=== PATIENT | male | born 1960 | race Caucasian/White ===

== ENCOUNTER 2016-08-23 07:46 | Emergency (ER) | payer MEDICAID ==
[2016-08-23 08:01] VITALS: BP 183/105
[2016-08-23] MEDS ORDERED: Bacitracin Oint 1 GM U/D Packet TOP ONE (08:22)
[2016-08-23] MEDS ORDERED: Doxycycline 100 MG Cap PO ONE (08:22)
[2016-08-23] MEDS ORDERED: Bacitracin Oint 28.35 GM Tube ONE (08:24)
--- NOTE | 2016-08-23 08:27 | EDM.PDOC ---
ED HPI GENERAL MEDICAL PROBLEM - General Chief Complaint: Bite:Animal, Insect Stated Complaint: TICK Time Seen by Provider: 08/23/16 08:14 Source of Information: Reports: Patient History Limitations: Reports: No Limitations - History of Present Illness INITIAL COMMENTS - FREE TEXT/NARRATIVE: Patient had a tick attached to his right posterior thigh. It was partially removed. 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 (see below) (Partial removal) Right Upper Leg Pain Score (Numeric/FACES): 2 - Related Data Allergies Allergy/AdvReac Type Severity Reaction Status Date / Time No Known Allergies Allergy Verified 07/03/15 13:16 Home Meds: Home Meds Lisinopril/Hydrochlorothiazide [Lisinopril-Hctz 10-12.5 mg Tab] 1 each PO DAILY 05/15/13 [History] Ferrous Sulfate 325 mg PO DAILY 06/14/15 [History] Docusate Sodium [Colace] 100 mg PO BID PRN 07/02/15 [History] Acetaminophen/HYDROcodone [[place] 325-5 MG] 1 - 2 tab PO Q4H PRN #30 tablet 07/08 [Rx] Past Medical History Cardiovascular History: Reports: Hypertension Gastrointestinal History: Reports: Colon Polyp, Other (See Below) Other Gastrointestinal History: tumor Musculoskeletal History: Reports: Arthritis, Back Pain, Chronic, Other (See Below) Other Musculoskeletal History: 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 Lymes disease - Infectious Disease History Infectious Disease History: Reports: MRSA - Past Surgical History Cardiovascular Surgical History: Reports: None GI Surgical History: Reports: Colon, Colonoscopy Social & Family History - Family History Cardiac: Reports: Hypertension - Tobacco Use Smoking Status *Q: Current Every Day Smoker Years of Tobacco use: 40 Packs/Tins Daily: 1 Used Tobacco, but Quit: No Second Hand Smoke Exposure: Yes - Caffeine Use Caffeine Use: Reports: Coffee - Alcohol Use Days Per Week of Alcohol Use: 4 Number of Drinks Per Day: 4 Total Drinks Per Week: 16 - Recreational Drug Use Recreational Drug Use: Yes Drug Use in Last 12 Months: No Recreational Drug Type: Reports: Marijuana/Hashish Recreational Drug Use Frequency: Not Used In Over 2 Months ED ROS GENERAL - Review of Systems Review Of Systems: See Below Constitutional: Reports: No Symptoms HEENT: Reports: No Symptoms Respiratory: Reports: No Symptoms Cardiovascular: Reports: No Symptoms Endocrine: Reports: No Symptoms GI/Abdominal: Reports: No Symptoms : Reports: No Symptoms Musculoskeletal: Reports: No Symptoms Skin: Reports: Wound Neurological: Reports: No Symptoms ED EXAM, ANIMAL BITE - Physical Exam Exam: See Below Exam Limited By: No Limitations General Appearance: Alert, WD/WN, No Apparent Distress, Anxious Eye Exam: Bilateral Eye: Normal Inspection Ears: Normal External Exam Nose: Normal Inspection. No: Nasal Swelling Throat/Mouth: Normal Inspection Head: Atraumatic, Normocephalic Neck: Normal Inspection Respiratory/Chest: No Respiratory Distress Cardiovascular: Normal Peripheral Pulses Extremities: Normal Inspection (Tick bite right posterior thigh) Neurological: Alert, Oriented Psychiatric: Normal Affect, Normal Mood Skin Exam: Normal Color Course - Vital Signs Last Recorded V/S: Last Vital Signs Temp 98.4 F 08/23/16 08:10 Pulse 82 08/23/16 08:10 Resp 16 08/23/16 08:10 BP 183/105 H 08/23/16 08:10 Pulse Ox 98 08/23/16 08:10 - Orders/Labs/Meds Orders: Active Orders 24 hr Category Date Time Status Bacitracin [Bacitracin Oint 1 GM] Med 08/23/16 08:22 Once 1 dose TOP ONETIME ONE Doxycycline [Vibramycin] Med 08/23/16 08:22 Once 200 mg PO ONETIME ONE Departure - Departure Time of Disposition: 08:25 Disposition: Home, Self-Care 01 Condition: good Clinical Impression: Tick bite Qualifiers: Encounter type: initial encounter Qualified Code(s): W57.XXXA - Bitten or stung by nonvenomous insect and other nonvenomous arthropods, initial encounter - Discharge Information Instructions: Insect Bite, [id number] Forms: ED Department Discharge Additional Instructions: Patient was told to have a tick attached to the posterior aspect of the right thigh. It was partially removed by the patient. The remainder of the tick attachment was removed with a splinter forceps. The wound was treated with bacitracin and a Band-Aid. The patient is given doxycycline 200 mg orally. Patient discharged home. No additional treatment should be indicated or needed. Reevaluation if new problems develop. - Problem List Review Problem List Initiated/Reviewed/Updated: Yes - My Orders Last 24 Hours: My Active Orders 08/23/16 08:22 Bacitracin [Bacitracin Oint 1 GM] 1 dose TOP ONETIME ONE Doxycycline [Vibramycin] 200 mg PO ONETIME ONE - Assessment/Plan Last 24 Hours: My Active Orders 08/23/16 08:22 Bacitracin [Bacitracin Oint 1 GM] 1 dose TOP ONETIME ONE Doxycycline [Vibramycin] 200 mg PO ONETIME ONE
== END 2016-08-23 08:33 | disposition home or self-care (01) ==
LOC: JP.ED 07:46
DX: S70.361A Insect bite (nonvenomous), right thigh, initial encounter (principal); I10 Essential (primary) hypertension; F17.210 Nicotine dependence, cigarettes, uncomplicated; Z79.899 Other long term (current) drug therapy; W57.XXXA Bitten or stung by nonvenomous insect and other nonvenomous arthropods, initial encounter
CPT/HCPCS: 99283; A9270

== ENCOUNTER 2017-05-18 16:27 | Emergency (ER) | payer MEDICAID ==
[2017-05-18] MEDS ORDERED: Aspirin 81 MG Tab.Chew PO ONE (17:14)
--- NOTE | 2017-05-18 18:09 | EDM.PDOC ---
<Neetu Tom - Last Filed: 05/18/17 19:02> ED HPI GENERAL MEDICAL PROBLEM - General Chief Complaint: Chest Pain Stated Complaint: CHEST PRESSURE Time Seen by Provider: 05/18/17 18:05 Source of Information: Reports: Patient History Limitations: Reports: No Limitations - History of Present Illness INITIAL COMMENTS - FREE TEXT/NARRATIVE: PT ARRIVED WIT A HISTORY OF CHEST PAIN YESTERDAY AND TODAY. eACH TIME IT LASTED ABOUT 1-2 MINUTES IT FELT LIKE PRESSURE. hE IS PAIN FREE AT THIS TIME. hE HAS BEEN SOB. hE DOES SMOKE REGULARLY. hE HAS A HISTORY OF USING METH ONCE ABOUT 1 WEEK AGO, Onset: Other (YESTERDAY. ) Duration: Hour(s): Location: Reports: Chest Associated Symptoms: Reports: Chest Pain, Shortness of Breath - Related Data Allergies Allergy/AdvReac Type Severity Reaction Status Date / Time No Known Allergies Allergy Verified 05/18/17 17:10 Home Meds: Home Meds Lisinopril/Hydrochlorothiazide [Lisinopril-Hctz 10-12.5 mg Tab] 1 each PO DAILY 05/15/13 [History] Past Medical History Cardiovascular History: Reports: Hypertension Gastrointestinal History: Reports: Colon Polyp, Other (See Below) Other Gastrointestinal History: tumor Musculoskeletal History: Reports: Arthritis, Back Pain, Chronic, Other (See Below) Other Musculoskeletal History: 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 Lymes disease - Infectious Disease History Infectious Disease History: Reports: MRSA - Past Surgical History Cardiovascular Surgical History: Reports: None GI Surgical History: Reports: Colon, Colonoscopy Social & Family History - Family History Cardiac: Reports: Hypertension - Tobacco Use Smoking Status *Q: Unknown Ever Smoked Years of Tobacco use: 40 Packs/Tins Daily: 1 Used Tobacco, but Quit: No Second Hand Smoke Exposure: Yes - Caffeine Use Caffeine Use: Reports: Coffee - Alcohol Use Days Per Week of Alcohol Use: 4 Number of Drinks Per Day: 4 Total Drinks Per Week: 16 - Recreational Drug Use Recreational Drug Use: Yes Drug Use in Last 12 Months: No Recreational Drug Type: Reports: Marijuana/Hashish Recreational Drug Use Frequency: Not Used In Over 2 Months ED ROS GENERAL - Review of Systems Review Of Systems: See Below Constitutional: Reports: No Symptoms HEENT: Reports: No Symptoms, Other (PT HAS SWELLING IN HIS UPPER LIP THIS HAS OCCURRED 3 TIMES SINCE HIS LISINOPRIL HAS BEEN INCREASED. ) Cardiovascular: Reports: Chest Pain, Other ( 2 EPISODES OF CHEST PAIN ONE YESTERDAY AND ONE TODAY. hE HAS HAD INCREASED ) Endocrine: Reports: No Symptoms GI/Abdominal: Reports: No Symptoms : Reports: No Symptoms Musculoskeletal: Reports: No Symptoms Skin: Reports: No Symptoms ED EXAM, GENERAL - Physical Exam Exam: See Below Free Text/Narrative:: He had 2 episodes of atypical chest pain. He has some swelling of his upper lip fron the increased dose of lisinopril . He has been very sob. Exam Limited By: No Limitations General Appearance: Alert, Anxious, Mild Distress Ears: Normal TMs Nose: Normal Inspection Throat/Mouth: Normal Inspection Head: Atraumatic Neck: Normal Inspection Respiratory/Chest: No Respiratory Distress Cardiovascular: Regular Rate, Rhythm GI/Abdominal: Soft, Non-Tender (Male) Exam: Deferred Rectal (Males) Exam: Deferred Back Exam: Normal Inspection Extremities: Other (no edema. ) Neurological: Alert, Oriented, Normal Cognition Psychiatric: Normal Affect Course - Vital Signs Last Recorded V/S: Last Vital Signs Temp 36.5 C 05/18/17 16:47 Pulse 94 05/18/17 21:30 Resp 24 H 05/18/17 21:30 BP 137/64 05/18/17 21:30 Pulse Ox 97 05/18/17 21:30 - Orders/Labs/Meds Orders: Active Orders 24 hr Category Date Time Status EKG Documentation Completion [RC] ASDIRECTED Care 05/18/17 17:13 Active EKG Documentation Completion [RC] ASDIRECTED Care 05/18/17 19:34 Active Chest 1V Frontal [CR] Stat Exams 05/18/17 17:13 Taken EKG 12 Lead [EK] Routine Ther 05/18/17 17:13 Ordered EKG 12 Lead [EK] Routine Ther 05/18/17 19:34 Ordered Labs: Laboratory Tests 05/18/17 05/18/17 05/18/17 Range/Units 17:24 17:24 17:24 WBC 9.8 (4.5-11.0) K/uL RBC 4.25 L (4.30-5.90) M/uL Hgb 12.4 D (12.0-15.0) g/dL Hct 38.2 L (40.0-54.0) % MCV 90 (80-98) fL MCH 29 (27-31) pg MCHC 33 (32-36) % Plt Count 273 (150-400) K/uL Neut % (Auto) 78 H (36-66) % Lymph % (Auto) 6 L (24-44) % [place] % (Auto) 6 (2-6) % Eos % (Auto) 9 H (2-4) % Baso % (Auto) 1 (0-1) % Sodium 136 L (140-148) mmol/L Potassium 4.6 (3.6-5.2) mmol/L Chloride 102 (100-108) mmol/L Carbon Dioxide 29 (21-32) mmol/L Anion Gap 9.6 (5.0-14.0) mmol/L BUN 53 H D (7-18) mg/dL Creatinine 2.5 H D (0.8-1.3) mg/dL Est Cr Clr Drug Dosing 37.29 mL/min Estimated GFR (MDRD) 27 L (>60) Glucose 102 (74-106) mg/dL Calcium 8.4 L (8.5-10.1) mg/dL Total Bilirubin 0.2 (0.2-1.0) mg/dL AST 13 L D (15-37) U/L ALT 21 (12-78) U/L Alkaline Phosphatase 75 (46-116) U/L Creatine Kinase 100 (39-308) U/L Troponin I < 0.017 (0.000-0.056) ng/mL NT-Pro-B Natriuret Pep (5-125) pg/mL Total Protein 6.5 (6.4-8.2) g/dL Albumin 3.1 L (3.4-5.0) g/dL Globulin 3.4 (2.3-3.5) g/dL Albumin/Globulin Ratio 0.9 L (1.2-2.2) Urine Color Urine Appearance Urine pH (4.5-8.0) Ur Specific [place] (1.008-1.030) Urine Protein (NEGATIVE) mg/dL Urine Glucose (UA) (NEGATIVE) mg/dL Urine Ketones (NEGATIVE) mg/dL Urine Occult Blood (NEGATIVE) Urine Nitrite (NEGAITVE) Urine Bilirubin (NEGATIVE) Urine Urobilinogen (NORMAL) mg/dL Ur Leukocyte Esterase (NEGATIVE) Urine RBC (0-5) Urine WBC (0-5) Ur Epithelial Cells Amorphous Sediment Urine Bacteria Urine Mucus Urine Opiates Screen (NEGATIVE) Ur Oxycodone Screen (NEGATIVE) Urine Methadone Screen (NEGATIVE) Ur Propoxyphene Screen (NEGATIVE) Ur Barbiturates Screen (NEGATIVE) Ur Tricyclics Screen (NEGATIVE) Ur Phencyclidine Scrn (NEGATIVE) Ur Amphetamine Screen (NEGATIVE) U Methamphetamines Scrn (NEGATIVE) Urine MDMA Screen (NEGATIVE) U Benzodiazepines Scrn (NEGATIVE) U Cocaine Metab Screen (NEGATIVE) U Marijuana (THC) Screen (NEGATIVE) 05/18/17 05/18/17 05/18/17 Range/Units 18:10 18:10 19:07 WBC (4.5-11.0) K/uL RBC (4.30-5.90) M/uL Hgb (12.0-15.0) g/dL Hct (40.0-54.0) % MCV (80-98) fL MCH (27-31) pg MCHC (32-36) % Plt Count (150-400) K/uL Neut % (Auto) (36-66) % Lymph % (Auto) (24-44) % [place] % (Auto) (2-6) % Eos % (Auto) (2-4) % Baso % (Auto) (0-1) % Sodium (140-148) mmol/L Potassium (3.6-5.2) mmol/L Chloride (100-108) mmol/L Carbon Dioxide (21-32) mmol/L Anion Gap (5.0-14.0) mmol/L BUN (7-18) mg/dL Creatinine (0.8-1.3) mg/dL Est Cr Clr Drug Dosing mL/min Estimated GFR (MDRD) (>60) Glucose (74-106) mg/dL Calcium (8.5-10.1) mg/dL Total Bilirubin (0.2-1.0) mg/dL AST (15-37) U/L ALT (12-78) U/L Alkaline Phosphatase (46-116) U/L Creatine Kinase (39-308) U/L Troponin I < 0.017 (0.000-0.056) ng/mL NT-Pro-B Natriuret Pep (5-125) pg/mL Total Protein (6.4-8.2) g/dL Albumin (3.4-5.0) g/dL Globulin (2.3-3.5) g/dL Albumin/Globulin Ratio (1.2-2.2) Urine Color Yellow Urine Appearance Clear Urine pH 5.0 (4.5-8.0) Ur Specific [place] 1.020 (1.008-1.030) Urine Protein Negative (NEGATIVE) mg/dL Urine Glucose (UA) Normal (NEGATIVE) mg/dL Urine Ketones Negative (NEGATIVE) mg/dL Urine Occult Blood Negative (NEGATIVE) Urine Nitrite Negative (NEGAITVE) Urine Bilirubin Negative (NEGATIVE) Urine Urobilinogen Normal (NORMAL) mg/dL Ur Leukocyte Esterase Negative (NEGATIVE) Urine RBC 0-5 (0-5) Urine WBC 0-5 (0-5) Ur Epithelial Cells Rare Amorphous Sediment Not seen Urine Bacteria Not seen Urine Mucus Not seen Urine Opiates Screen Negative (NEGATIVE) Ur Oxycodone Screen Negative (NEGATIVE) Urine Methadone Screen Negative (NEGATIVE) Ur Propoxyphene Screen Negative (NEGATIVE) Ur Barbiturates Screen Negative (NEGATIVE) Ur Tricyclics Screen Negative (NEGATIVE) Ur Phencyclidine Scrn Negative (NEGATIVE) Ur Amphetamine Screen Positive H (NEGATIVE) U Methamphetamines Scrn Positive H (NEGATIVE) Urine MDMA Screen Negative (NEGATIVE) U Benzodiazepines Scrn Negative (NEGATIVE) U Cocaine Metab Screen Negative (NEGATIVE) U Marijuana (THC) Screen Positive H (NEGATIVE) 05/18/17 Range/Units 19:43 WBC (4.5-11.0) K/uL RBC (4.30-5.90) M/uL Hgb (12.0-15.0) g/dL Hct (40.0-54.0) % MCV (80-98) fL MCH (27-31) pg MCHC (32-36) % Plt Count (150-400) K/uL Neut % (Auto) (36-66) % Lymph % (Auto) (24-44) % [place] % (Auto) (2-6) % Eos % (Auto) (2-4) % Baso % (Auto) (0-1) % Sodium (140-148) mmol/L Potassium (3.6-5.2) mmol/L Chloride (100-108) mmol/L Carbon Dioxide (21-32) mmol/L Anion Gap (5.0-14.0) mmol/L BUN (7-18) mg/dL Creatinine (0.8-1.3) mg/dL Est Cr Clr Drug Dosing mL/min Estimated GFR (MDRD) (>60) Glucose (74-106) mg/dL Calcium (8.5-10.1) mg/dL Total Bilirubin (0.2-1.0) mg/dL AST (15-37) U/L ALT (12-78) U/L Alkaline Phosphatase (46-116) U/L Creatine Kinase (39-308) U/L Troponin I (0.000-0.056) ng/mL NT-Pro-B Natriuret Pep 65 (5-125) pg/mL Total Protein (6.4-8.2) g/dL Albumin (3.4-5.0) g/dL Globulin (2.3-3.5) g/dL Albumin/Globulin Ratio (1.2-2.2) Urine Color Urine Appearance Urine pH (4.5-8.0) Ur Specific [place] (1.008-1.030) Urine Protein (NEGATIVE) mg/dL Urine Glucose (UA) (NEGATIVE) mg/dL Urine Ketones (NEGATIVE) mg/dL Urine Occult Blood (NEGATIVE) Urine Nitrite (NEGAITVE) Urine Bilirubin (NEGATIVE) Urine Urobilinogen (NORMAL) mg/dL Ur Leukocyte Esterase (NEGATIVE) Urine RBC (0-5) Urine WBC (0-5) Ur Epithelial Cells Amorphous Sediment Urine Bacteria Urine Mucus Urine Opiates Screen (NEGATIVE) Ur Oxycodone Screen (NEGATIVE) Urine Methadone Screen (NEGATIVE) Ur Propoxyphene Screen (NEGATIVE) Ur Barbiturates Screen (NEGATIVE) Ur Tricyclics Screen (NEGATIVE) Ur Phencyclidine Scrn (NEGATIVE) Ur Amphetamine Screen (NEGATIVE) U Methamphetamines Scrn (NEGATIVE) Urine MDMA Screen (NEGATIVE) U Benzodiazepines Scrn (NEGATIVE) U Cocaine Metab Screen (NEGATIVE) U Marijuana (THC) Screen (NEGATIVE) Meds: Medications Discontinued Medications Generic Name Dose Route Start Last Admin Trade Name Freq PRN Reason Stop Dose Admin Aspirin 324 mg 05/18/17 17:14 05/18/17 17:18 Aspirin PO 02/19/18 17:15 324 mg ONETIME ONE Administration Sodium Chloride 1,000 mls @ 500 mls/hr 05/18/17 19:15 05/18/17 19:29 Normal Saline IV 500 mls/hr ASDIRECTED [facility] Administration - Re-Assessments/Exams Free Text/Narrative Re-Assessment/Exam: 05/18/17 19:06 his first trop is normal His creatnine is elevated. He has an elevated bp. Departure - Departure Disposition: Home, Self-Care 01 Clinical Impression: Atypical chest pain, Elevated serum creatinine Angioedema of lips Qualifiers: Encounter type: initial encounter Qualified Code(s): T78.3XXA - Angioneurotic edema, initial encounter Hypertension Qualifiers: Hypertension type: essential hypertension Qualified Code(s): I10 - Essential ( primary) hypertension Instructions: Angioedema, [id number], Nonspecific Chest Pain Referrals: Abe Ngo MD [Primary Care Provider] - Forms: ED Department Discharge Additional Instructions: There does not appear to be any evidence of heart or acute lung disease on examination today, EKG was normal chest x-ray was read as normal and blood test did not show any evidence of heart strain. However you have felt some chest pressure yesterday and had shortness of breath last week so follow up with your doctor is recommended. In addition blood tests show elevated kidney function: urea and creatinine are high. Most likely this is due to some dehydration. Drink more fluids Have your urea and creatinine rechecked within the next week. In addition you have been having episodes of lip swelling. This is called angioedema. The most likely cause is the POOJA inhibitor lisinopril. I recommend this be stopped now When you see your physician, he can start you on a new medication for blood pressure. Return to emergency if you have severe chest pain, are very short of breath, develop a very bad cough or high fever. <Nino Renteria - Last Filed: 05/19/17 01:41> Course - Re-Assessments/Exams Free Text/Narrative Re-Assessment/Exam: 05/19/17 01:37 21.25 Transferred to my care from Dr. Tom, see note above, 56-year-old male being evaluated for chest pain yesterday and occasionally before. He has a history of hypertension but no history of ischemia Here with areas girlfriend No chest pain today, Patient also reports that he's had 3 episodes of lip swelling Recently his dose of lisinopril was increased, this is the only antihypertensive medicine he's taking. First EKG showed sinus tachycardia and a second EKG was normal, both troponins drawn tonight were normal Lab tests did show elevated BUN/creatinine creatinine, the creatinine being 2.5 , last creatinine here was 1.2-1.5. Does admit to methamphetamine use. When I saw him vital signs showed mild elevation of blood pressure but normal pulse and saturation, he was resting quite comfortably Chest x-ray was also reviewed by me, negative by my interpretation Impression Nonspecific chest pain Elevated blood pressure Elevated BUN/creatinine creatinine Suspected angioedema of the lips by history See discharge instructions Departure - Departure Time of Disposition: 21:30 Reason for Transfer *Q: Primary PCI Indicated Condition: Undetermined
[2017-05-18] MEDS ORDERED: Sodium Chloride 0.9% 1,000 ML IV SCH (19:15)
[2017-05-18 21:40] VITALS: BP 137/64
--- NOTE | 2017-05-19 08:55 | CR ---
Portable chest Comparison: May 2015. There is mild hyperinflation. The heart and vascular structures are stable. There are no infiltrates or effusions. There has been interval placement of a [id number] catheter on the left. There is a c hronic right rib fracture. Impression: 1. No acute findings.
== END 2017-05-18 21:50 | disposition home or self-care (01) ==
LOC: JP.ED 16:27
DX: R07.89 Other chest pain (principal); R79.89 Other specified abnormal findings of blood chemistry; I10 Essential (primary) hypertension; Z79.899 Other long term (current) drug therapy
CPT/HCPCS: 36415; 71045; 80053; 80305; 81001; 82550; 83880; 84484; 85025; 93005; 96360; 96361; 99285; A9270; J7040

== ENCOUNTER 2022-06-28 14:11 | Emergency (ER) | payer MEDICAID ==
[2022-06-28 14:24] VITALS: BP 162/77; PULSE 69
== END 2022-06-28 15:09 | disposition home or self-care (01) ==
LOC: JP.ED 14:11
DX: J44.9 Chronic obstructive pulmonary disease, unspecified (principal); I10 Essential (primary) hypertension; Z88.8 Allergy status to other drugs, medicaments and biological substances; Z87.891 Personal history of nicotine dependence
CPT/HCPCS: 99283; 99284

== ENCOUNTER 2022-11-26 17:32 | Emergency (ER) | payer MEDICAID ==
[2022-11-26 18:03] VITALS: BP 135/59; PULSE 81
[2022-11-26] MEDS ORDERED: Bacitracin Oint 1 GM U/D Packet TOP ONE ×2 (19:01→19:12)
== END 2022-11-26 23:11 | disposition home or self-care (01) ==
LOC: JP.ED 17:32
DX: T20.26XA Burn of second degree of forehead and cheek, initial encounter (principal); T20.24XA Burn of second degree of nose (septum), initial encounter; I10 Essential (primary) hypertension; J44.9 Chronic obstructive pulmonary disease, unspecified; F17.210 Nicotine dependence, cigarettes, uncomplicated; Z88.8 Allergy status to other drugs, medicaments and biological substances; Z79.899 Other long term (current) drug therapy; X08.8XXA Exposure to other specified smoke, fire and flames, initial encounter
CPT/HCPCS: 99283